=== PATIENT | female | born 1980 | race Hispanic/Latino ===

== ENCOUNTER 2016-10-29 12:43 | Emergency (ER) | payer OTHER ==
[2015-10-26 06:16] VITALS: BMI 25.0
--- NOTE | 2016-10-29 14:04 | OBHP ---
Datetime: 10/29/2016 13:48 IP Adm Impression: , intrauterine IP Chief Complaint Other: spotting IP Admit Plan: Observation/Evaluation; Discharge home Admit Comment, IP Provider: Patient is a @ 24.1 wks, IVF , for evaluation after no ticing vaginal bleeding. Patient reports intercourse yesterday, patient woke up today and had what lo oked like a light period. Patient denies leaking, +FM, no ctxns. Otherwise patient has no complaints VE=closed on speculum exam. No vaginal bleeding in the vault [id number] mod isma, +accels, no decels TOCO=no contractions noted A/P 1. Patient had that one episode of vaginal bleeding, on exam no bleeding noted. cervix looks close d on visualization. FHR = 140 mod isma, +accels, no decels. TOCO = no ctxns 2. Patient looks to be stable, no sign of labor or chorio. WIll discharge home with labor precauti ons Pelvic Type - PN: Adequate Extremities - PN: Normal Abdomen - PN: Normal Back - PN: Normal Breast - PN: Normal Lungs - PN: Normal Heart - PN: Normal Thyroid - PN: Normal Neurologic - PN: Normal HEENT - PN: Normal General - PN: Normal FHR - Baseline A Provider: 140 Contraction Comments Provider: none Vital Signs Provider: Reviewed; Within Normal Limits NICHD Decel Fetus A IP Provider: None Dilatation, Provider: closed Genitourinary Exam: Normal DTRs - PN: Normal
== END 2016-10-29 13:40 | disposition home or self-care (01) ==
LOC: H.EROB2 12:43
DX: O47.03 False labor before 37 completed weeks of gestation, third trimester (principal); Z3A.24 24 weeks gestation of pregnancy

== ENCOUNTER 2017-02-12 08:54 | Inpatient (IN) | payer OTHER ==
[2017-02-14 22:25] VITALS: BMI 29.1
[2017-02-14] MEDS: Lactated Ringer's 1,000 ML IV SCH (23:09)
[2017-02-15 00:02] VITALS: O2SAT 99
[2017-02-15] MEDS ORDERED: Oxytocin 30 units/LR 500ML 30 U/500 ML BAG IV ONE (00:03)
[2017-02-15] MEDS: Lactated Ringer's 1,000 ML IV SCH ×4 (00:10→12:30)
[2017-02-15 00:15] LABS: BASO % 0.3 % (0.0-2.0); EOS # 0.2 K/uL (0.0-0.7); EOS % 1.5 % (0.0-4.0); HEMATOCRIT 34.9 % (34.0-47.0); LYMPH # 2.3 K/uL (1.0-4.3); LYMPH % 20.7 % (20.0-40.0); MEAN CELL VOLUME 96.2 fl (81.0-99.0); MEAN CORPUSCULAR HEMOGLOBIN 32.3 pg (27.0-31.0); MEAN CORPUSCULAR HGB CONC 33.6 g/dL (33.0-37.0); MONO # 0.7 K/uL (0.0-0.8); MONO % 6.8 % (0.0-10.0); NEUT # 7.7 K/uL (1.8-7.0); NEUT % 70.7 % (50.0-75.0); RED CELL DISTRIBUTION WIDTH 12.6 % (11.5-14.5); WHITE BLOOD COUNT 10.9 K/uL (4.8-10.8)
--- NOTE | 2017-02-15 00:19 | OBADHP ---
Datetime: 02/14/2017 22:50 Admit Comment, IP Provider: Direct Admission 36yo edc 02/17 IVF conceptions presents for induciton of labor. She denies decreased fm, sr om, bleeding. states obhx uncomplicated pmhx: denies pshx: d_c for sab nkda medic pnv shx: denies etoh, drugs or tobacco use I:39.4wks induction p: admit for induction Begin low dose pitocin. d/w dr harrington Pelvic Type - PN: Adequate Extremities - PN: Normal Abdomen - PN: Normal Heart - PN: Normal Neurologic - PN: Normal HEENT - PN: Normal General - PN: Normal Presentation-Admit: Vertex FHR - Baseline A Provider: 120 Comments, ACOG Physical Exam: gbs neg rpr neg Gestation - Est Wks by US: 39.4 Vital Signs Provider: Reviewed; Within Normal Limits IP Chief Complaint: Scheduled induction of labor NICHD Variability Prov Fetus A: Moderate 6-25bpm NICHD Accel Fetus A IP Provider: 15X15 FHR Category Provider Fetus A: Category I NICHD Decel Fetus A IP Provider: None Dilatation, Provider: 2 Effacement, Provider: 70/firm Station, Provider: -3/post Genitourinary Exam: Normal EGA AdmitDate IP: 39.4 IP Adm Impression: Term, intrauterine IP Admit Plan: Admit to unit Datetime: 10/29/2016 13:48 IP Chief Complaint Other: spotting Back - PN: Normal Breast - PN: Normal Lungs - PN: Normal Thyroid - PN: Normal Contraction Comments Provider: none DTRs - PN: Normal
--- NOTE | 2017-02-15 00:36 | OBHP ---
Datetime: 02/14/2017 22:50 IP Adm Impression: Term, intrauterine IP Admit Plan: Admit to unit Admit Comment, IP Provider: Direct Admission 36yo edc 02/17 IVF conceptions presents for induciton of labor. She denies decreased fm, sr om, bleeding. states obhx uncomplicated pmhx: denies pshx: d_c for sab nkda medic pnv shx: denies etoh, drugs or tobacco use I:39.4wks induction p: admit for induction Begin low dose pitocin. d/w dr harrington Pelvic Type - PN: Adequate Extremities - PN: Normal Abdomen - PN: Normal Heart - PN: Normal Neurologic - PN: Normal HEENT - PN: Normal General - PN: Normal Presentation-Admit: Vertex FHR - Baseline A Provider: 120 Comments, ACOG Physical Exam: gbs neg rpr neg Gestation - Est Wks by US: 39.4 EGA AdmitDate IP: 39.4 Vital Signs Provider: Reviewed; Within Normal Limits IP Chief Complaint: Scheduled induction of labor NICHD Variability Prov Fetus A: Moderate 6-25bpm NICHD Accel Fetus A IP Provider: 15X15 FHR Category Provider Fetus A: Category I NICHD Decel Fetus A IP Provider: None Dilatation, Provider: 2 Effacement, Provider: 70/firm Station, Provider: -3/post Genitourinary Exam: Normal
[2017-02-15] MEDS ORDERED: Bupivacaine HCl 0.25% PF (10 ml) Inj ONE (11:51)
[2017-02-15] MEDS ORDERED: Fentanyl/Bupivacaine HCl 250 ML EPI ONE (11:51)
[2017-02-15] MEDS ORDERED: Lidocaine 1% Inj (20ml) ONE (12:52)
[2017-02-15] MEDS ORDERED: Alum-Mag Hydrox-Simethicone Susp (30 mL) PO ONE (16:51)
[2017-02-15] MEDS ORDERED: Oxycodone/Acetaminophen 5/325 mg Tab PO PRN ×4 (19:58→22:03)
[2017-02-15] MEDS ORDERED: Benzocaine/Menthol SPRAY TOP PRN ×2 (19:58→22:03)
--- NOTE | 2017-02-15 20:07 | OBDS ---
DELIVERY PERSONNEL Delivery Doctor: Chuy Paulino MD Inside Sales Engineer: Michelle Riddle RN/Lee Anesthesiologist: Kris Kent MD MATERNAL INFORMATION Delivery Anesthesia: Epidural Medications in Delivery: Pitocin Maternal Complications: None Provider Comments: Include live baby boy at 7:15 PM the baby was bulb suctioned on the perineum entr ance through the maternal chest. The cord was clamped and cut 3 vessels noted. Cord blood was obtaine d and sent to the lab. Placenta was delivered at 721 intact. There is a second-degree vaginal lacerat ion was repaired with 2-0 repeat. Pitocin was infused to assist in uterine involution. There was some oozing as he noted at the introitus and some denuded epithelium. Vaginal packing was placed. The est imated blood loss was 150 mL. The mother tolerated the procedure well. He went to the well baby nurse with Apgars of 9 and 9 weighing 9 pounds 12.6 ounces 4,440 g LABOR SUMMARY EDC: 02/17/2017 00:00 No. Babies in Womb: 1 Attempted: No Labor Anesthesia: Epidural LABOR INFORMATION Reason for Induction: Macrosomia Onset of Labor: 02/15/2017 11:50 Complete Dilatation: 02/16/2017 17:26 Oxytocin: Induction Group B Beta Strep: Negative Antibiotics # of Doses: n/a Antibiotics Time of Last Dose: n/a Steroids Given: None Reason Steroids Not Administered: Not Applicable MEMBRANES Membranes Rupture Method: Artificial Rupture of Membranes: 02/15/2017 08:03 Length of Rupture (hrs): 11.20 Amniotic Fluid Color: Clear Amniotic Fluid Amount: Moderate Amniotic Fluid Odor: Normal STAGES OF LABOR Stage 1 hrs: 29 Stage 1 min: 36 Stage 2 hrs: -22 Stage 2 min: -11 BABY A INFORMATION Delivery Date/Time: 02/15/2017 19:15 Method of Delivery: Vaginal Born in Route : No : N/A Vacuum Extraction: N/A Shoulder Dystocia : No SHOULDER DYSTOCIA BABY A Infant Delivery Date/Time: 02/15/2017 19:15 PRESENTATION/POSITION BABY A Presentation: Cephalic Cephalic Presentation: Vertex Breech Presentation: N/A SCORES BABY A Heart Rate 1 min: >100 bpm Resp Effort 1 min: Good Cry Reflex Irritability 1 min: Cough or Sneeze or Pulls Away Muscle Tone 1 min: Active Motion Color 1 min: Body [place], Extremities Blue SCORE 1 MIN: 9 Heart Rate 5 min: >100 bpm Resp Effort 5 min: Good Cry Reflex Irritability 5 min: Cough or Sneeze or Pulls Away Muscle Tone 5 min: Active Motion Color 5 min: Body [place], Extremities Blue Resuscitation Effort 5 min: N/A SCORE 5 MIN: 9 INFANT INFORMATION BABY A Gestational Age at Delivery: 39.5 Gestational Status: Term Infant Outcome : Liveborn Condition : Stable Infant Sex: Male IDENTIFICATION/MEDS BABY A ID Band Number: [id number] ID Band Location: Left Leg; Left Arm CORD INFORMATION BABY A Cord Blood Taken: Yes Infant Suction: Mouth; Nose ASSESSMENT BABY A Infant Complications: None Physical Findings at Delivery: Within Normal Limits Infant Respirations: Appears Normal [facility] Called : No Care By: Keren/Manish Transferred To: Remains with Mother
[2017-02-16 07:07] LABS: RED CELL DISTRIBUTION WIDTH 12.8 % (11.5-14.5); WHITE BLOOD COUNT 13.7 K/uL (4.8-10.8)
--- NOTE | 2017-02-16 20:31 | OBPPN ---
Datetime: 02/16/2017 20:21 PP Pain Prov: Within normal limits PP Nausea Prov: Denies PP Flatus Prov: Yes PP BM Prov: Yes PP Breasts Prov: Normal PP Heart Prov: Normal PP Lungs Prov: Normal PP Abdomen/Uterus Prov: Normal PP Lochia Prov: Normal PP Vulva/Perineum Prov: Normal PP CVA Tenderness Prov: Normal PP Extremities Prov: Normal PP Progress Prov: Normal PP Impression Prov: Normal progression PP Plan Prov: Continue present management PP Progress Note Prov: H/H A; S/P day 1 Anemia - asymtpomatic PLAN: discharge tmrw Vital Signs Provider PP: Reviewed; Within Normal Limits
[2017-02-17 20:37] VITALS: BP 130/67; PULSE 61; RESP 20; TEMP 97.6
--- NOTE | 2017-02-17 20:39 | OBPPN ---
Datetime: 02/17/2017 20:36 PP Pain Prov: Within normal limits PP Nausea Prov: Denies PP Flatus Prov: Yes PP BM Prov: Yes PP Breasts Prov: Normal PP Heart Prov: Normal PP Lungs Prov: Normal PP Abdomen/Uterus Prov: Normal PP Lochia Prov: Normal PP Vulva/Perineum Prov: Normal PP CVA Tenderness Prov: Normal PP Extremities Prov: Normal PP Comments Phys Exam Prov: Uterus firm, 2 fingerbreadths below umbilicus No deep Tenderness bilaterally PP Impression Prov: Normal progression PP Plan Prov: Discharge PP Progress Note Prov: day #2 status post normal spontaneous vaginal delivery Discharge patient home today Patient will follow up in office in 6 weeks for visit All patient questions answered. IP PP Procedures: None Vital Signs Provider PP: Reviewed; Within Normal Limits
--- NOTE | 2017-02-17 20:39 | OBDCSUM ---
Datetime: 02/17/2017 12:32 Discharged to, Provider: Home Follow up at, Provider: OB /Dr. Paulino Disch Instr Activity: Normal activity; May be up to bathroom; May be up for meals; May Shower Disch Instr Diet: Regular Discharge Instructions, Provider: Routine instructions given Discharge Diagnosis, Provider: Term Delivered Discharge Time: 02/17/2017 12:32 Follow up in weeks, Provider: 4-6 weeks Disch Referrals: None Contraception discussed, Prov: Yes Disch Activity Restrictions: Minimize walking; Minimize stair-climbing; No sexual activity; Nothing in vagina - Rudd, tampons, douche Datetime: 10/29/2016 13:39 Disch Instr Activity: Normal activity
== END 2017-02-17 16:30 | disposition home or self-care (01) | DRG 775 ==
LOC: H.L&D 02-14 22:55 → H.OB/GYN 02-15 22:19
PROVIDERS: ADMIT Obstetrics & Gynecology Gynecology; ATTEND Obstetrics & Gynecology Gynecology
PROC: 4A1HXCZ Monitoring of Products of Conception, Cardiac Rate, External Approach (ICD-10-PCS; principal; 2017-02-14)
PROC: 10E0XZZ Delivery of Products of Conception, External Approach (ICD-10-PCS; 2017-02-14)
PROC: 0KQM0ZZ Repair Perineum Muscle, Open Approach (ICD-10-PCS; 2017-02-14)
DX: O36.63X0 Maternal care for excessive fetal growth, third trimester, not applicable or unspecified (principal); D64.9 Anemia, unspecified; Z37.0 Single live birth; O99.02 Anemia complicating childbirth; Z3A.39 39 weeks gestation of pregnancy; O70.1 Second degree perineal laceration during delivery

== ENCOUNTER 2018-08-27 22:34 | Inpatient (IN) | payer OTHER ==
[2018-08-27] MEDS ORDERED: Lactated Ringer's 1,000 ML IV SCH (23:30)
[2018-08-27] MEDS ORDERED: Penicillin G Potassium 5 MU in Sodium Chloride 0.9% 50 ML IVPB ONE (23:30)
--- NOTE | 2018-08-27 23:30 | OBADHP ---
Datetime: 08/27/2018 23:22 Admit Comment, IP Provider: The patient is a 38-year-old 3 para 1 estimated due date August estimated gestational age 41-week weeks patient presents to labor and delivery complaining of uterine contractions of moderate intensity times several days duration. Patient reports good m ovement no vaginal bleeding no leakage of fluid. Past medical history none Past surgical history suction D_C Medications vitamins No known drug allergies Social history denies alcohol tobacco use care unremarkable Obstetrical history previous normal vaginal delivery 9 pound 13 ounce Review of systems patient denies headache chest pain shortness of breath palpitations nausea vomit ing diarrhea vaginal bleeding heat or cold intolerance easy bruisability musculoskeletal or neurologi tobias complaints Intrauterine at 41+ weeks Labor Admit, IV fluid hydration, routine labs Vertex presentation, estimated weight 9 pounds Adequate pelvis Pelvic Type - PN: Adequate Extremities - PN: Normal Abdomen - PN: Normal Back - PN: Not Done Breast - PN: Not Done Lungs - PN: Normal Heart - PN: Normal Thyroid - PN: Normal Neurologic - PN: Normal HEENT - PN: Normal General - PN: Normal Presentation-Admit: Vertex FHR - Baseline A Provider: 145 Gestation - Est Wks by US: 41.0 Pool Provider: Negative Vital Signs Provider: Reviewed IP Chief Complaint: Uterine contractions; Maternal discomfort NICHD Variability Prov Fetus A: Moderate 6-25bpm NICHD Accel Fetus A IP Provider: 10X10 FHR Category Provider Fetus A: Category I NICHD Decel Fetus A IP Provider: None Dilatation, Provider: 5 Effacement, Provider: 90 Station, Provider: -2 Genitourinary Exam: Normal DTRs - PN: Normal IP Adm Impression: Term, intrauterine ; Active labor IP Admit Plan: Admit to unit
[2018-08-28] MEDS ORDERED: Penicillin G 5 Million Unit Vial IVPB ONE (00:06)
[2018-08-28 00:37] LABS: BASO # 0.1 K/uL (0.0-0.2); BASO % 0.7 % (0.0-2.0); EOS # 0.1 K/uL (0.0-0.7); EOS % 1.4 % (0.0-4.0); HEMOGLOBIN 11.2 g/dL (12.0-16.0); LYMPH % 20.9 % (20.0-40.0); MEAN CELL VOLUME 92.5 fl (81.0-99.0); MEAN CORPUSCULAR HEMOGLOBIN 31.1 pg (27.0-31.0); MEAN CORPUSCULAR HGB CONC 33.7 g/dL (33.0-37.0); MEAN PLATELET VOLUME 7.6 fl (7.2-11.7); MONO # 0.7 K/uL (0.0-0.8); MONO % 7.1 % (0.0-10.0); NEUT # 6.8 K/uL (1.8-7.0); NEUT % 69.9 % (50.0-75.0); NRBC % 0.1 % (0.0-0.0); RBC 3.61 Mil/uL (3.80-5.20); RED CELL DISTRIBUTION WIDTH 13.7 % (11.5-14.5); WHITE BLOOD COUNT 9.7 K/uL (4.8-10.8)
[2018-08-28] MEDS: Lactated Ringer's 1,000 ML IV ONE ×2 (01:00)
[2018-08-28] MEDS ORDERED: Fentanyl/Bupivacaine HCl 250 ML EPI ONE (01:26)
[2018-08-28] MEDS ORDERED: Lidocaine 1% Inj (20ml) ONE (07:12)
[2018-08-28] MEDS ORDERED: Oxytocin 10 Units/ml Inj ONE (07:12)
[2018-08-28] MEDS ORDERED: Oxytocin 10 Units/ml Inj IM ONE (07:30)
--- NOTE | 2018-08-28 07:39 | OBDS ---
DELIVERY PERSONNEL Delivery Doctor: Chuy Paulino MD Yard Foreman: PAUL Martinez/PAUL Carr Anesthesiologist: Dr. Isamar Liang MATERNAL INFORMATION Delivery Anesthesia: Epidural Medications in Delivery: Pitocin 10 mu/1mL, Lidocaine 1% Placenta Cultured: No Maternal Complications: None Provider Comments: Delivered a live baby boy at 7:05 AM the baby was bulb suctioned on the perineum then transferred to maternal chest. The cord was clamped and cut 3 vessels noted cord blood was obta ined and sent to the lab. The placenta was delivered at 7:09 AM. The estimated blood loss was 150 c c. There was a second-degree laceration which was repaired with 2-0 Rapide. The mother tolerated th e procedure well the baby went to the well baby nursery with Apgars of 9 and 9 weighing 4515 g LABOR SUMMARY EDC: 08/19/2018 00:00 No. Babies in Womb: 1 Attempted: No Labor Anesthesia: Epidural LABOR INFORMATION Reason for Induction: Not Applicable Onset of Labor: 08/27/2018 18:00 Complete Dilatation: 08/28/2018 06:00 Oxytocin: N/A Group B Beta Strep: Positive Antibiotics # of Doses: 2 Antibiotics Time of Last Dose: 0400 Steroids Given: None Reason Steroids Not Administered: Not Applicable MEMBRANES Membranes Rupture Method: Spontaneous Rupture of Membranes: 08/28/2018 06:00 Length of Rupture (hrs): 1.08 Amniotic Fluid Color: Clear Amniotic Fluid Amount: Moderate Amniotic Fluid Odor: None STAGES OF LABOR Stage 1 hrs: 12 Stage 1 min: 0 Stage 2 hrs: 1 Stage 2 min: 5 Stage 3 hrs: 0 Stage 3 min: 4 Total Time in Labor hrs: 13 Total Time in Labor min: 9 VAGINAL DELIVERY Episiotomy: None Laceration Extension: Second Degree Laceration Type: Perineal Laceration Repair: Yes Initial Vag Sponge Count: 5 Final Vag Sponge Count: 5 Initial Vag Sharps Count: 1 Final Vag Sharps Count: 1 Sponge Count Correct: Yes Sharps Count Correct: Yes BABY A INFORMATION Infant Delivery Date/Time: 08/28/2018 07:05 Method of Delivery: Vaginal Born in Route : No : N/A Forceps: N/A Vacuum Extraction: N/A Shoulder Dystocia : No SHOULDER DYSTOCIA BABY A Delivery Date/Time: 08/28/2018 07:05 PRESENTATION/POSITION BABY A Presentation: Cephalic Cephalic Presentation: Vertex Breech Presentation: N/A PLACENTA INFORMATION BABY A Placenta Delivery Time : 08/28/2018 07:09 Placenta Method of Delivery: Spontaneous Placenta Status: Delivered SCORES BABY A Heart Rate 1 min: >100 bpm Resp Effort 1 min: Good Cry Muscle Tone 1 min: Active Motion Color 1 min: Body [place], Extremities Blue Resuscitation Effort 1 min: N/A Heart Rate 5 min: >100 bpm Resp Effort 5 min: Good Cry Reflex Irritability 5 min: Cough or Sneeze or Pulls Away Muscle Tone 5 min: Active Motion Color 5 min: Body [place], Extremities Blue Resuscitation Effort 5 min: N/A SCORE 5 MIN: 9 INFANT INFORMATION BABY A Gestational Age at Delivery: 41.2 Gestational Status: Term Infant Outcome : Liveborn Infant Condition : Stable Infant Sex: Male IDENTIFICATION/MEDS BABY A ID Band Number: [id number] ID Band Location: Left Leg; Left Arm WEIGHT/LENGTH BABY A Infant Birthweight (gms): 4515 Weight (lb): 9 Infant Weight (oz): 15 CORD INFORMATION BABY A No. Cord Vessels: 3 Nuchal Cord : N/A Cord Blood Taken: Yes Infant Suction: Nose
[2018-08-28] MEDS ORDERED: Oxycodone/Acetaminophen 5/325 mg Tab PO PRN ×2 (07:40→08:26)
[2018-08-28] MEDS ORDERED: Benzocaine/Menthol SPRAY TOP PRN ×2 (07:40→08:26)
[2018-08-28] MEDS ORDERED: OXYTOCIN/0.9 % NS 20 UNIT/1,000 ML BAG IV ONE (08:00)
[2018-08-29 06:22] LABS: BASO % 0.6 % (0.0-2.0); EOS # 0.2 K/uL (0.0-0.7); EOS % 2.6 % (0.0-4.0); HEMOGLOBIN 11.1 g/dL (12.0-16.0); LYMPH # 1.8 K/uL (1.0-4.3); LYMPH % 23.1 % (20.0-40.0); MEAN CELL VOLUME 92.3 fl (81.0-99.0); MEAN CORPUSCULAR HEMOGLOBIN 31.7 pg (27.0-31.0); MEAN CORPUSCULAR HGB CONC 34.3 g/dL (33.0-37.0); MEAN PLATELET VOLUME 7.6 fl (7.2-11.7); MONO # 0.8 K/uL (0.0-0.8); MONO % 9.7 % (0.0-10.0); NEUT # 5.1 K/uL (1.8-7.0); RBC 3.49 Mil/uL (3.80-5.20); RED CELL DISTRIBUTION WIDTH 13.7 % (11.5-14.5); WHITE BLOOD COUNT 7.9 K/uL (4.8-10.8)
--- NOTE | 2018-08-29 07:39 | OBPPN ---
Datetime: 08/29/2018 07:37 PP Pain Prov: Within normal limits PP Abdomen/Uterus Prov: Normal PP Lochia Prov: Normal PP Extremities Prov: Normal PP Progress Prov: Normal PP Impression Prov: Normal progression PP Plan Prov: Continue present management PP Progress Note Prov: PPD 1 s/p , doing well, breast and bottle feeding Continue current management Vital Signs Provider PP: Reviewed
[2018-08-29] MEDS ORDERED: Hydrocortisone-Pramoxine 1%-1% Foam(10 gm) TOP PRN (11:08)
--- NOTE | 2018-08-30 09:24 | OBPPN ---
Datetime: 08/30/2018 09:21 PP Pain Prov: Within normal limits PP Nausea Prov: Denies PP Flatus Prov: Yes PP BM Prov: Yes PP Breasts Prov: Normal PP Heart Prov: Normal PP Lungs Prov: Normal PP Abdomen/Uterus Prov: Normal PP Lochia Prov: Normal PP Vulva/Perineum Prov: Normal PP CVA Tenderness Prov: Normal PP Extremities Prov: Normal PP Progress Prov: Normal PP Impression Prov: Normal progression PP Plan Prov: Discharge PP Progress Note Prov: She feels fine Ready to go home A: S/P day 2 PLAN dishcarge home and follow up in 6w Vital Signs Provider PP: Reviewed; Within Normal Limits
--- NOTE | 2018-08-30 09:26 | OBDCSUM ---
Datetime: 08/30/2018 09:22 Discharged to, Provider: Home Follow up at, Provider: [facility] Disch Instr Activity: Normal activity Disch Instr Diet: Regular Discharge Instructions, Provider: Routine instructions given Discharge Diagnosis, Provider: Term Delivered Follow up in weeks, Provider: 6w Disch Referrals: None Contraception discussed, Prov: Yes
[2018-08-30 18:59] VITALS: BP 104/67; PULSE 76; RESP 18; TEMP 97; O2SAT 100
== END 2018-08-30 14:10 | disposition home or self-care (01) | DRG 807 ==
LOC: H.EROB2 22:34 → H.L&D 23:30 → H.OB/GYN 08-28 11:10
PROVIDERS: ADMIT Obstetrics & Gynecology Gynecology; ATTEND Obstetrics & Gynecology Gynecology
PROC: 4A1HXCZ Monitoring of Products of Conception, Cardiac Rate, External Approach (ICD-10-PCS; 2018-08-27)
PROC: 10E0XZZ Delivery of Products of Conception, External Approach (ICD-10-PCS; principal; 2018-08-28)
PROC: 0KQM0ZZ Repair Perineum Muscle, Open Approach (ICD-10-PCS; 2018-08-28)
DX: O48.0 Post-term pregnancy (principal); Z37.0 Single live birth; Z3A.41 41 weeks gestation of pregnancy; O70.1 Second degree perineal laceration during delivery